=== PATIENT | male | born 1960 | race Caucasian/White ===

== ENCOUNTER → 2018-08-21 | Outpatient (REF) | payer OTHER | LOC: M LAB REF 11:56 | PROVIDERS: ATTEND Nurse Practitioner Adult Health | DX: R30.0 Dysuria (principal) ==

== ENCOUNTER → 2019-03-02 | Outpatient (REF) | payer OTHER ==
[2019-03-02 17:58] LABS: BACTERIA, URINE AUTO NEGATIVE (NEGATIVE); RBC, URINE AUTO 2 /HPF (0-3); SQUAMOUS EPITHELIAL CELL UR AU 0 /HPF (0-6); WBC, URINE AUTO 4 /HPF (0-3)
== END ==
LOC: M LAB REF 16:37
PROVIDERS: ATTEND Nurse Practitioner Adult Health
DX: R31.9 Hematuria, unspecified (principal)

== ENCOUNTER → 2021-01-02 | Outpatient (REF) | payer BC, OTHER | LOC: M LAB REF 12:01 | PROVIDERS: ATTEND Nurse Practitioner Adult Health | DX: E03.9 Hypothyroidism, unspecified (principal) ==

== ENCOUNTER → 2021-07-18 | Outpatient (REF) | payer BC | LOC: M LAB REF 09:08 | PROVIDERS: ATTEND Surgery | DX: L72.0 Epidermal cyst (principal) ==

== ENCOUNTER → 2021-09-04 | Outpatient (REF) | payer BC ==
[2021-09-04 13:06] LABS: BACTERIA, URINE AUTO NEGATIVE (NEGATIVE); MUCUS, URINE SMALL (NEGATIVE); RBC, URINE AUTO 1 /HPF (0-3); SQUAMOUS EPITHELIAL CELL UR AU 0 /HPF (0-6); WBC, URINE AUTO 11 /HPF (0-3)
== END ==
LOC: M LAB REF 12:07
PROVIDERS: ATTEND Nurse Practitioner Adult Health
DX: R31.9 Hematuria, unspecified (principal)

== ENCOUNTER 2024-09-13 07:39 | Day surgery (SDC) | payer BC ==
[~2024-09-13] VITALS: Ht 180.3 cm; Wt 134.2 kg
[~2024-09-13 07:39] MED LIST: ALLO300T2 PO; AMLO1TAB25 PO; BENA-8 PO
[2024-09-13] MEDS ORDERED: propofoL 200 MG/20 ML VIAL As Ordered ONE (08:42)
[2024-09-13] MEDS ORDERED: LIDOCAINE 2% 100MG/5ML SDV (FOR ANES.) As Ordered ONE (08:42)
[2024-09-13] MEDS ORDERED: GLYCOPYRROLATE INJ 0.2 MG/ML 2 ML VIAL As Ordered ONE (08:42)
[2024-09-13 09:15] VITALS: TEMP 99.7
[2024-09-13 09:35] VITALS: BP 112/59; O2SAT 95
== END 2024-09-13 09:53 | disposition home or self-care (01) ==
LOC: M OPP 07:39
PROVIDERS: ATTEND Internal Medicine Gastroenterology
DX: Z12.11 Encounter for screening for malignant neoplasm of colon (principal); K57.30 Diverticulosis of large intestine without perforation or abscess without bleeding; K64.0 First degree hemorrhoids; K22.70 Barrett's esophagus without dysplasia; K22.89 Other specified disease of esophagus; R12 Heartburn; G47.33 Obstructive sleep apnea (adult) (pediatric); Z79.899 Other long term (current) drug therapy
CPT/HCPCS: 43239; 45378; 88305; J1596